=== PATIENT | female | born 1980 | race Two or more races ===

== ENCOUNTER 2019-12-20 18:30 | Emergency (ER) | payer OTHER, SELFPAY ==
[2019-12-20 19:33] VITALS: BP 144/62; PULSE 93; RESP 18; TEMP 36.2; O2SAT 98; BMI 40.2
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
[2019-12-20] MEDS: Lidocaine HCl 2 % MPF 5 ML VIAL SUBCUT (21:07)
== END 2019-12-20 21:33 | disposition home or self-care (01) ==
PROVIDERS: Emergency Provider Internal Medicine; PCP Internal Medicine
DX: S61.412A Laceration without foreign body of left hand, initial encounter (principal); S60.512A Abrasion of left hand, initial encounter; M79.642 Pain in left hand; M54.2 Cervicalgia; M54.5 Low back pain; V43.52XA Car driver injured in collision with other type car in traffic accident, initial encounter; Y93.9 Activity, unspecified; Y92.410 Unspecified street and highway as the place of occurrence of the external cause; Y99.9 Unspecified external cause status
CPT/HCPCS: 12011; 73130; 90471; 90715; 99284

== ENCOUNTER 2022-01-18 17:24 | Outpatient (REF) | payer OTHER, SELFPAY ==
[2022-01-18 18:11] LABS: Influenza A PCR NEGATIVE (Negative); Influenza B PCR NEGATIVE (Negative); Resp Syncy Virus RNA Qual PCR NEGATIVE (Negative); SARS COV2 PCR INHOUSE NEGATIVE (Negative)
== END 2022-01-18 17:25 | disposition home or self-care (01) ==
LOC: HO.LNP 17:24
PROVIDERS: Visit Provider Internal Medicine
DX: Z20.822 Contact with and (suspected) exposure to COVID-19 (principal); J06.9 Acute upper respiratory infection, unspecified
CPT/HCPCS: 0241U